=== PATIENT | male | born 1955 | race Caucasian/White ===

== ENCOUNTER 2017-12-11 02:16 | Emergency (ER) | payer SELFPAY ==
[2017-12-11] MEDS ORDERED: methylPREDNISolone Sod Succ/PF 125 MG/2 ML VIAL ONE (02:32)
[2017-12-11 02:54] LABS: CKMB 1.7 ng/mL (0-6.6); Troponin I Less than 0.010 ng/mL (< 0.028)
[2017-12-11 03:00] LABS: #Basophils 0.1 thou/uL (0.0-0.2); #Eosinphils 0.2 thou/uL (0.0-0.7); #Monocytes 0.8 thou/uL (0.11-0.59); #Neutrophils 12.7 thou/uL (1.40-6.50); %Basophils 0.5 % (0.0-1.0); %Eosinophils 1.2 % (0.0-10.0); %Lymphocytes 12.8 % (21.0-51.0); %Monocytes 4.9 % (0.0-10.0); %Neutrophils 80.6 % (42.0-75.0); Hemoglobin 14.8 g/dL (14.0-18.0); Large Platelets SLIGHT; MDiff Complete? YES; Mean Corpuscular Hemoglobin 29.8 pg (27.0-31.0); Mean Corpuscular Volume 90.2 fL (78.0-98.0); PLT Morphology Comment Appears Adequate; Platelet Count 251 thou/uL (130-400); RBC Distribution Width 11.7 % (11.5-14.5); RBC Morphology Normal; Red Blood Cell (RBC) Count 4.96 mill/uL (4.70-6.10); White Blood Cell (WBC) Count 15.7 thou/uL (4.8-10.8)
[2017-12-11 03:08] LABS: ALT (SGPT) 15 U/L (8-55); AST (SGOT) 16 U/L (5-34); Albumin 4.5 g/dL (3.4-4.8); Alkaline Phosphatase 83 U/L (40-150); Anion Gap 16 mmol/L (10-20); BUN (Urea Nitrogen) 23 mg/dL (8.4-25.7); Bilirubin, Total 0.3 mg/dL (0.2-1.2); Calc. Creatinine Clearance 0 mL/min (70-130); Calcium 10.1 mg/dL (7.8-10.44); Carbon Dioxide 24 mmol/L (23-31); Chloride 103 mmol/L (98-107); Estimated GFR-MDRD 81; Globulin 3.4 g/dL (2.4-3.5); Glucose 147 mg/dL (80-115); Potassium 4.4 mmol/L (3.5-5.1); Protein, Total 7.9 g/dL (5.8-8.1); Sodium 139 mmol/L (136-145)
[2017-12-11] MEDS ORDERED: Iopamidol 370 76% 100 ML VIAL ONE (09:00)
--- NOTE | 2017-12-11 11:59 | RAD ---
PORTABLE CHEST: DATE: 12/11/17. FINDINGS: An AP portable film at 0218 shows a normal-sized heart and clear lungs. No infiltrate or effusion wa s seen. The mediastinum appears normal. IMPRESSION: No acute thoracic findings. POS: HOME
--- NOTE | 2017-12-11 12:36 | CT ---
PRELIMINARY REPORT/[facility]/EMERGENCY AFTER HOURS PROCEDURE: EXAM: CT Angiography Chest With Intravenous Contrast CLINICAL HISTORY: 62 years old, male; Abnormal findings; Other: + d dimer; Patient HX: SOB & + d dimer wbc 15,000 TECHNIQUE: Axial computed tomographic angiography images of the chest with intravenous contrast using pulmonary embolism protocol. All CT scans at this facility use at least one of these dose optimization techniqu es: automated exposure control; mA and/or kV adjustment per patient size (includes targeted exams where dose is matched to clinical indication); or iterative reconstruction. MIP reconstructed i mages were created and reviewed. COMPARISON: No relevant prior studies available. FINDINGS: Pulmonary arteries: Somewhat limited evaluation due to streak artifacts and motion, however there is no definite evidence of pulmonary embolism. Aorta: No acute findings. No thoracic aortic aneurysm or dissection. Lungs: No mass. No consolidation. Right lower lobe calcified granuloma. Few other scattered noncalcif ied nonspecific nodules that may also represent granulomas, for instance right lower lobe peripheral nodule on axial image 62 measuring 5 mm. These may be followed. Few focal groundglass opacities which could be infectious/inflammatory. Pleural space: No effusion. No pneumothorax. Heart: No cardiomegaly. No pericardial effusion. Mediastinum: Questionable distal esophageal wall thickening. Bones/joints: No acute fracture. No dislocation. Soft tissues: No acute findings. Lymph nodes: No lymphadenopathy. IMPRESSION: No definite evidence of pulmonary embolism. Findings described above. Thank you for allowing us to participate in the care of your patient. Dictated and Authenticated by: Julian Staton MD 12/11/2017 4:40 AM Central Time ([place] & [place]) FINAL REPORT CT ANGIO OF THE CHEST WITH CONTRAST: DATE: 12/11/17. FINDINGS: Spiral CT of the chest was done for evaluation of dyspnea and an elevated D-dimer. Axial slices were acquired, then oblique coronal, coronal, and sagittal images through the pulmonary arteries were obt ained in MIP projections. There is no evidence of pulmonary embolism in the major branches and segmental branches. Small perip heral emboli might be missed by this study. There is no sign of aortic aneurysm or dissection. No m ediastinal mass or adenopathy was seen. There are no major infiltrates or effusions. There are some scattered ground-glass densities through out the lungs, the largest being in the anterior portion of the right middle lobe. These could have infectious or inflammatory etiologies. There are 1 or 2 areas that are slightly nodular such as in t he right lower lobe peripherally on scans 62 and 63. There is a small smooth nondescript 5 mm nodule . IMPRESSION: 1. No evidence of pulmonary embolism. 2. Scattered ground-glass densities and even a subcentimeter nodule or two. General guidelines woul d be to follow these up with a CT in the next 6-12 months depending upon whether this patient has any other worrisome conditions. Report in agreement with preliminary reading by [facility] POS: HOME
== END 2017-12-11 04:58 | disposition home or self-care (01) ==
LOC: BURERS 02:16
DX: J44.1 Chronic obstructive pulmonary disease with (acute) exacerbation (principal); E03.9 Hypothyroidism, unspecified; Z87.891 Personal history of nicotine dependence; Z79.899 Other long term (current) drug therapy
CPT/HCPCS: 36415; 71045; 71275; 80053; 82553; 83880; 84484; 85025; 85379; 93005; 94640; 96374; A4216; J2930